=== PATIENT | female | born 2000 | race Hispanic/Latino ===

== ENCOUNTER 2022-05-14 16:23 | Emergency (ER) | payer SELFPAY ==
[2022-05-14] MEDS ORDERED: Morphine 4 MG/ML VIAL ONE (17:43)
[2022-05-14] MEDS ORDERED: Ondansetron PF 4 MG/2 ML Vial ONE (17:43)
[2022-05-14] MEDS ORDERED: Lidocaine 1% w/Epinephrine 1:200K 30 ML VIAL ONE (17:43)
== END 2022-05-14 20:06 | disposition home or self-care (01) ==
LOC: CSHERS 16:23
DX: S01.81XA Laceration without foreign body of other part of head, initial encounter (principal); W22.8XXA Striking against or struck by other objects, initial encounter
CPT/HCPCS: 12011; 70450; 70486; 72125; 96374; 96375; J2270; J2405